=== PATIENT | male | born 1965 | race African-American/Black ===

== ENCOUNTER 2016-10-11 12:36 | Inpatient (IN) | payer OTHER ==
[2016-10-11 13:20] VITALS: BMI 30.6
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
[2016-10-11] MEDS ORDERED: MENTHOL/PHENOL 1 EACH UD MM PRN (16:20)
[2016-10-11] MEDS ORDERED: hydrOXYzine PAMOATE 50 MG CAPSULE (FP) PO PRN (16:20)
[2016-10-11] MEDS ORDERED: LOPERAMIDE HCL 2 MG CAPSULE PO PRN (16:20)
[2016-10-11] MEDS ORDERED: MAGNESIUM CITRATE 300 ML BOTTLE PO PRN (16:20)
[2016-10-11] MEDS ORDERED: MAGNESIUM HYDROX 2400MG/30ML ORAL SUSPENSION 30 ML CUP PO PRN (16:20)
[2016-10-11] MEDS ORDERED: guaiFENesin/D-METHORPHAN HB 10 ML UNIT-DOSE CUPS PO PRN (16:20)
[2016-10-11] MEDS ORDERED: MAG HYDROX/AL HYDROX/SIMETH 30 ML UNIT-DOSE CUP PO PRN (16:20)
[2016-10-11] MEDS ORDERED: diphenhydrAMINE HCL 50 MG CAPSULE PO PRN (16:20)
[2016-10-11] MEDS ORDERED: NICOTINE POLACRILEX 4 MG GUM BUC PRN (16:20)
[2016-10-11] MEDS ORDERED: IBUPROFEN 400 MG TABLET (FP) PO PRN (16:20)
[2016-10-11] MEDS ORDERED: P-EPHED 60MG/TRIPROLIDI 2.5MG TABLET PO PRN (16:20)
[2016-10-11] MEDS: INSULIN (NOVOLOG) ASPART 100 UNITS/ML 10ML VIAL SQ SCH (19:10)
[2016-10-11] MEDS ORDERED: TUBERCULIN PPD 5 TU/0.1ML VIAL ID ONE (19:12)
[2016-10-11 21:33] LABS: URINE APPEARANCE CLEAR; URINE BILIRUBIN NEGATIVE (NEGATIVE); URINE BLOOD NEGATIVE (NEGATIVE); URINE COLOR YELLOW; URINE GLUCOSE (UA) 3+ (NEGATIVE); URINE KETONE NEGATIVE (NEGATIVE); URINE LEUK ESTERASE NEGATIVE (NEGATIVE); URINE NITRITE NEGATIVE (NEGATIVE); URINE PROTEIN NEGATIVE (NEGATIVE); URINE UROBILINOGEN NEGATIVE mg/dL (0.2-1.0)
[2016-10-11] MEDS: THIAMINE HCL 100 MG TABLET (FP) PO SCH (22:22)
[2016-10-12] MEDS: metFORMIN HCL 500 MG TABLET (FP) PO SCH (06:49)
[2016-10-12] MEDS: INSULIN (NOVOLOG) ASPART 100 UNITS/ML 10ML VIAL SQ SCH ×3 (06:50→16:42)
[2016-10-12] MEDS ORDERED: INSULIN (NOVOLOG) ASPART 100 UNITS/ML 10ML VIAL ONE ×3 (06:54→16:41)
[2016-10-12] MEDS: PRENATAL VITAMINS W/ FOLIC ACID TABLET (FP) PO SCH (10:01)
[2016-10-12] MEDS: NICOTINE 21 MG/24 HOURS TOPICAL PATCH TD SCH (10:01)
[2016-10-12] MEDS: LISINOPRIL 10 MG TABLET (FP) PO SCH (10:01)
[2016-10-12 10:58] LABS: ALBUMIN 3.9 g/dl (3.4-5.0); ALK PHOS 69 U/L (45-117); ANION GAP 11 (8-16); BILIRUBIN,TOTAL 0.8 mg/dL (0.2-1.0); CALCIUM 9.6 mg/dL (8.5-10.1); CO2 28 mmol/L (21-32); CREATININE 0.8 mg/dL (0.7-1.3); GLUCOSE,RANDOM 197 mg/dL (74-106); SGOT/AST 26 U/L (15-37); SGPT/ALT 44 U/L (12-78)
[2016-10-12 11:00] LABS: MCH 32.4 pg (25.7-33.7); MCHC 33.5 g/dl (32.0-35.9); MEAN CELL VOLUME 96.7 fl (80-96); MEAN PLT VOLUME 9.1 fl (7.5-11.1); PLATELET COUNT 221 K/MM3 (134-434); RDW 13.8 % (11.9-15.9); WHITE BLOOD COUNT 6.9 K/mm3 (4.0-10.0)
[2016-10-12] MEDS: THIAMINE HCL 100 MG TABLET (FP) PO SCH (21:35)
[2016-10-13] MEDS ORDERED: INSULIN (NOVOLOG) ASPART 100 UNITS/ML 10ML VIAL ONE ×3 (06:57→16:37)
[2016-10-13] MEDS: metFORMIN HCL 500 MG TABLET (FP) PO SCH (06:57)
[2016-10-13] MEDS: INSULIN (NOVOLOG) ASPART 100 UNITS/ML 10ML VIAL SQ SCH ×3 (06:58→16:36)
[2016-10-13] MEDS: PRENATAL VITAMINS W/ FOLIC ACID TABLET (FP) PO SCH (09:54)
[2016-10-13] MEDS: NICOTINE 21 MG/24 HOURS TOPICAL PATCH TD SCH (09:54)
[2016-10-13] MEDS: LISINOPRIL 10 MG TABLET (FP) PO SCH (09:54)
[2016-10-13] MEDS: THIAMINE HCL 100 MG TABLET (FP) PO SCH (21:57)
--- NOTE | 2016-10-13 22:27 | EKG ---
Test Reason : Blood Pressure : / mmHG Vent. Rate : 091 BPM Atrial Rate : 091 BPM P-R Int : 150 ms QRS Dur : 096 ms QT Int : 362 ms P-R-T Axes : 059 -30 008 degrees QTc Int : 445 ms NORMAL SINUS RHYTHM POSSIBLE LEFT ATRIAL ENLARGEMENT LEFT AXIS DEVIATION ABNORMAL ECG NO PREVIOUS ECGS AVAILABLE Confirmed by AISHA PAT MD ([id number]) on 10/13/2016 10:27:07 PM Referred By: Rafa Parmar Confirmed By:AISHA PAT MD
[2016-10-14] MEDS: metFORMIN HCL 500 MG TABLET (FP) PO SCH (06:33)
[2016-10-14] MEDS: INSULIN (NOVOLOG) ASPART 100 UNITS/ML 10ML VIAL SQ SCH ×3 (06:35→17:01)
[2016-10-14] MEDS: NICOTINE 21 MG/24 HOURS TOPICAL PATCH TD SCH (10:21)
[2016-10-14] MEDS: LISINOPRIL 10 MG TABLET (FP) PO SCH (10:21)
[2016-10-14] MEDS: PRENATAL VITAMINS W/ FOLIC ACID TABLET (FP) PO SCH (10:21)
[2016-10-14] MEDS ORDERED: INSULIN (NOVOLOG) ASPART 100 UNITS/ML 10ML VIAL ONE (11:54)
--- NOTE | 2016-10-14 12:21 | CONSULT ---
[facility] Psychiatric Consult - Data Date of interview: 10/14/16 Admission source: [facility] Substance Abuse History: - Smoking Cessation. Smoking history: Current every day smoker. Have you smoked in the past 12 months: Yes. Aproximately how many cigarettes per day: 10. Hx Chewing Tobacco Use: No. Initiated information on smoking cessation: Yes. 'Breaking Loose' booklet given: 10/11/16. - Substance & Tx. History. Hx Alcohol Use: Yes. Hx Substance Use: No. Substance Use Type : Alcohol. Hx Substance Use Treatment: Yes (detox [facility] d/c 10/11/16)
--- NOTE | 2016-10-14 13:20 | HP ---
Psychiatrist Admission - Data Date of interview: 10/14/16 Admission source: [facility] Identifying data: First admission to [address] for this 51 y/o AA male seeking rehabilitation treatment for alcohol and cocaine (crack) dependence.Patient is ,a father of two,homeless and supported on odd jobs. Medical History: Morbid obesity,diabetes mellitus,arthritis of both knees (self- report) and hypertension. Psychiatric History: Patient denies. Physical/Sexual Abuse/Trauma History: Patient denies. Additional Comment: Discussed with the patient in this interview.Mr Chowdhury cofirms this report as an accurate account of his addictions. Smoking Cessation. Smoking history: Current every day smoker. Have you smoked in the past 12 months: Yes. Aproximately how many cigarettes per day: 10. Hx Chewing Tobacco Use: No. Initiated information on smoking cessation: Yes. 'Breaking Loose' booklet given: 10/11/16. - Substance & Tx. History. Hx Alcohol Use: Yes. Hx Substance Use: No. Substance Use Type: Alcohol. Hx Substance Use Treatment: Yes (detox [facility] d/c 10/11/16) Vital Signs: Vital Signs - 24 hr 10/14/16 10/14/16 10/14/16 00:30 03:30 07:09 Temperature 98 F Pulse Rate 83 Respiratory 18 18 20 Rate Blood Pressure 154/74 10/14/16 10:45 Temperature Pulse Rate 87 Respiratory 18 Rate Blood Pressure 161/77 Allergies/Adverse Reactions: Allergies Allergy/AdvReac Type Severity Reaction Status Date / Time No Known Allergies Allergy Verified 10/11/16 16:09 - Substance Abuse/Tx History Hx Alcohol Use: Yes Hx Substance Use: Yes Substance Use Type: Alcohol, Cocaine Hx Substance Use Treatment: Yes (alcohol,crack and cigarettes) - Admission Criteria Previous failed treatment: Yes Poor recovery environment: Yes Comorbidities: Yes Lacks judgement: Yes Mental Status Exam - Mental Status Exam Alert and Oriented to: Time, Place, Person Cognitive Function: Good Patient Appearance: Well Groomed (obese) Mood: Hopeful, Euthymic Affect: Appropriate, Normal Range Patient Behavior: Appropriate, Cooperative Speech Pattern: Clear, Appropriate Voice Loudness: Normal Thought Process: Intact, Goal Oriented Thought Disorder: Not Present Hallucinations: Denies Suicidal Ideation: Denies Insight/Judgement: Poor Sleep: Well Appetite: Good Muscle strength/Tone: Normal Gait/Station: Normal Psychiatric Findings - Problem List ([place] 1, 2,3) (1) Alcohol dependence Current Visit: Yes Status: Acute (2) Nicotine dependence Current Visit: Yes Status: Acute Qualifiers: Nicotine product type: cigarettes Substance use status: uncomplicated Qualified Code(s): F17.210 - Nicotine dependence, cigarettes, uncomplicated (3) Cocaine dependence Current Visit: Yes Status: Acute (4) Diabetes mellitus Current Visit: Yes Status: Chronic Qualifiers: Diabetes mellitus type: type 2 Diabetes mellitus complication status: with unspecified complications Diabetes mellitus lobsterman insulin use: without lobsterman use Qualified Code(s): E11.8 - Type 2 diabetes mellitus with unspecified complications; Z79.4 - correction (current) use of insulin (5) Hypertension Current Visit: Yes Status: Chronic Qualifiers: Hypertension type: essential hypertension Qualified Code(s): I10 - Essential (primary) hypertension (6) Knee pain, chronic Current Visit: No Status: Chronic Qualifiers: Laterality: bilateral Qualified Code(s): M25.561 - Pain in right knee; G89.29 - Other chronic pain - Initial Treatment Plan Initial Treatment Plan: Psychoeducation is provided in this session.Support.Observation.
[2016-10-14] MEDS: THIAMINE HCL 100 MG TABLET (FP) PO SCH (21:31)
[2016-10-15] MEDS ORDERED: INSULIN (NOVOLOG) ASPART 100 UNITS/ML 10ML VIAL ONE ×2 (07:15→11:45)
[2016-10-15] MEDS: metFORMIN HCL 500 MG TABLET (FP) PO SCH (07:15)
[2016-10-15] MEDS: INSULIN (NOVOLOG) ASPART 100 UNITS/ML 10ML VIAL SQ SCH ×3 (07:15→16:56)
[2016-10-15] MEDS: LISINOPRIL 10 MG TABLET (FP) PO SCH (09:59)
[2016-10-15] MEDS: NICOTINE 21 MG/24 HOURS TOPICAL PATCH TD SCH (09:59)
[2016-10-15] MEDS: PRENATAL VITAMINS W/ FOLIC ACID TABLET (FP) PO SCH (09:59)
[2016-10-15] MEDS: NEOMYCIN/POLYMYXN/HC OTIC SOLUTION 10 ML BOTTLE AS SCH ×2 (17:08→23:30)
[2016-10-15] MEDS: THIAMINE HCL 100 MG TABLET (FP) PO SCH (22:03)
[2016-10-16] MEDS: NEOMYCIN/POLYMYXN/HC OTIC SOLUTION 10 ML BOTTLE AS SCH ×4 (06:47→23:37)
[2016-10-16] MEDS: metFORMIN HCL 500 MG TABLET (FP) PO SCH (07:10)
[2016-10-16] MEDS ORDERED: INSULIN (NOVOLOG) ASPART 100 UNITS/ML 10ML VIAL ONE ×2 (07:10→11:51)
[2016-10-16] MEDS: INSULIN (NOVOLOG) ASPART 100 UNITS/ML 10ML VIAL SQ SCH ×3 (07:10→16:59)
[2016-10-16] MEDS: PRENATAL VITAMINS W/ FOLIC ACID TABLET (FP) PO SCH (10:12)
[2016-10-16] MEDS: NICOTINE 21 MG/24 HOURS TOPICAL PATCH TD SCH (10:12)
[2016-10-16] MEDS: LISINOPRIL 10 MG TABLET (FP) PO SCH (10:12)
[2016-10-16] MEDS: PANTOPRAZOLE 40 MG TABLET (FP) PO SCH (15:38)
[2016-10-16] MEDS: THIAMINE HCL 100 MG TABLET (FP) PO SCH (22:09)
[2016-10-16] MEDS: NAPROXEN 500 MG TABLET (FP) PO SCH (22:09)
[2016-10-17] MEDS: metFORMIN HCL 500 MG TABLET (FP) PO SCH (06:04)
[2016-10-17] MEDS: NEOMYCIN/POLYMYXN/HC OTIC SOLUTION 10 ML BOTTLE AS SCH ×4 (06:05→23:23)
[2016-10-17] MEDS: INSULIN (NOVOLOG) ASPART 100 UNITS/ML 10ML VIAL SQ SCH ×3 (06:31→17:03)
[2016-10-17] MEDS: NAPROXEN 500 MG TABLET (FP) PO SCH ×2 (10:24→21:38)
[2016-10-17] MEDS: LISINOPRIL 10 MG TABLET (FP) PO SCH (10:24)
[2016-10-17] MEDS: NICOTINE 21 MG/24 HOURS TOPICAL PATCH TD SCH (10:25)
[2016-10-17] MEDS: PANTOPRAZOLE 40 MG TABLET (FP) PO SCH (10:25)
[2016-10-17] MEDS: PRENATAL VITAMINS W/ FOLIC ACID TABLET (FP) PO SCH (10:25)
[2016-10-17] MEDS ORDERED: INSULIN (NOVOLOG) ASPART 100 UNITS/ML 10ML VIAL ONE ×2 (11:50→17:04)
[2016-10-17] MEDS: ACETAMINOPHEN 325 MG TABLET (FP) PO PRN (17:06)
[2016-10-17] MEDS: THIAMINE HCL 100 MG TABLET (FP) PO SCH (21:38)
[2016-10-18] MEDS: NEOMYCIN/POLYMYXN/HC OTIC SOLUTION 10 ML BOTTLE AS SCH ×4 (06:29→23:51)
[2016-10-18] MEDS: metFORMIN HCL 500 MG TABLET (FP) PO SCH (07:06)
[2016-10-18] MEDS: INSULIN (NOVOLOG) ASPART 100 UNITS/ML 10ML VIAL SQ SCH ×3 (07:07→16:57)
[2016-10-18] MEDS ORDERED: INSULIN (NOVOLOG) ASPART 100 UNITS/ML 10ML VIAL ONE ×2 (07:07→11:39)
[2016-10-18] MEDS: NAPROXEN 500 MG TABLET (FP) PO SCH ×2 (10:07→21:29)
[2016-10-18] MEDS: PANTOPRAZOLE 40 MG TABLET (FP) PO SCH (10:07)
[2016-10-18] MEDS: PRENATAL VITAMINS W/ FOLIC ACID TABLET (FP) PO SCH (10:07)
[2016-10-18] MEDS: LISINOPRIL 10 MG TABLET (FP) PO SCH (10:07)
[2016-10-18] MEDS: NICOTINE 21 MG/24 HOURS TOPICAL PATCH TD SCH (10:08)
[2016-10-18] MEDS: GABAPENTIN 100 MG CAPSULE (FP) PO SCH ×2 (13:11→21:28)
[2016-10-18] MEDS: THIAMINE HCL 100 MG TABLET (FP) PO SCH (21:28)
[2016-10-19] MEDS: NEOMYCIN/POLYMYXN/HC OTIC SOLUTION 10 ML BOTTLE AS SCH ×4 (06:00→23:22)
[2016-10-19] MEDS: GABAPENTIN 100 MG CAPSULE (FP) PO SCH ×3 (06:30→21:48)
[2016-10-19] MEDS ORDERED: INSULIN (NOVOLOG) ASPART 100 UNITS/ML 10ML VIAL ONE (07:22)
[2016-10-19] MEDS: metFORMIN HCL 500 MG TABLET (FP) PO SCH (07:23)
[2016-10-19] MEDS: INSULIN (NOVOLOG) ASPART 100 UNITS/ML 10ML VIAL SQ SCH ×3 (07:24→16:38)
[2016-10-19] MEDS: PANTOPRAZOLE 40 MG TABLET (FP) PO SCH (10:26)
[2016-10-19] MEDS: LISINOPRIL 10 MG TABLET (FP) PO SCH (10:26)
[2016-10-19] MEDS: PRENATAL VITAMINS W/ FOLIC ACID TABLET (FP) PO SCH (10:26)
[2016-10-19] MEDS: NAPROXEN 500 MG TABLET (FP) PO SCH ×2 (10:26→21:48)
[2016-10-19] MEDS: NICOTINE 21 MG/24 HOURS TOPICAL PATCH TD SCH (10:44)
[2016-10-19] MEDS: THIAMINE HCL 100 MG TABLET (FP) PO SCH (21:48)
[2016-10-20] MEDS: GABAPENTIN 100 MG CAPSULE (FP) PO SCH ×3 (06:24→21:33)
[2016-10-20] MEDS: NEOMYCIN/POLYMYXN/HC OTIC SOLUTION 10 ML BOTTLE AS SCH ×3 (06:24→17:25)
[2016-10-20] MEDS ORDERED: INSULIN (NOVOLOG) ASPART 100 UNITS/ML 10ML VIAL ONE (07:28)
[2016-10-20] MEDS: metFORMIN HCL 500 MG TABLET (FP) PO SCH (07:28)
[2016-10-20] MEDS: INSULIN (NOVOLOG) ASPART 100 UNITS/ML 10ML VIAL SQ SCH ×3 (07:29→16:57)
[2016-10-20] MEDS: NAPROXEN 500 MG TABLET (FP) PO SCH ×2 (10:35→21:33)
[2016-10-20] MEDS: PANTOPRAZOLE 40 MG TABLET (FP) PO SCH (10:35)
[2016-10-20] MEDS: LISINOPRIL 10 MG TABLET (FP) PO SCH (10:36)
[2016-10-20] MEDS: NICOTINE 21 MG/24 HOURS TOPICAL PATCH TD SCH (10:36)
[2016-10-20] MEDS: PRENATAL VITAMINS W/ FOLIC ACID TABLET (FP) PO SCH (10:37)
[2016-10-20] MEDS: THIAMINE HCL 100 MG TABLET (FP) PO SCH (21:34)
[2016-10-21] MEDS: GABAPENTIN 100 MG CAPSULE (FP) PO SCH ×3 (06:26→21:55)
[2016-10-21] MEDS: NEOMYCIN/POLYMYXN/HC OTIC SOLUTION 10 ML BOTTLE AS SCH ×5 (06:26→23:25)
[2016-10-21] MEDS ORDERED: INSULIN (NOVOLOG) ASPART 100 UNITS/ML 10ML VIAL ONE ×2 (07:23→11:34)
[2016-10-21] MEDS: INSULIN (NOVOLOG) ASPART 100 UNITS/ML 10ML VIAL SQ SCH ×3 (07:24→16:49)
[2016-10-21] MEDS: metFORMIN HCL 500 MG TABLET (FP) PO SCH (07:24)
[2016-10-21] MEDS: PRENATAL VITAMINS W/ FOLIC ACID TABLET (FP) PO SCH (09:39)
[2016-10-21] MEDS: PANTOPRAZOLE 40 MG TABLET (FP) PO SCH (09:39)
[2016-10-21] MEDS: NAPROXEN 500 MG TABLET (FP) PO SCH ×2 (09:39→21:55)
[2016-10-21] MEDS: LISINOPRIL 10 MG TABLET (FP) PO SCH (09:40)
[2016-10-21] MEDS: NICOTINE 21 MG/24 HOURS TOPICAL PATCH TD SCH (09:40)
[2016-10-21] MEDS: THIAMINE HCL 100 MG TABLET (FP) PO SCH (21:56)
[2016-10-22] MEDS: metFORMIN HCL 500 MG TABLET (FP) PO SCH (06:10)
[2016-10-22] MEDS: GABAPENTIN 100 MG CAPSULE (FP) PO SCH ×3 (06:10→21:51)
[2016-10-22] MEDS: INSULIN (NOVOLOG) ASPART 100 UNITS/ML 10ML VIAL SQ SCH ×3 (06:12→16:56)
[2016-10-22] MEDS: NEOMYCIN/POLYMYXN/HC OTIC SOLUTION 10 ML BOTTLE AS SCH ×3 (06:12→18:52)
[2016-10-22] MEDS ORDERED: INSULIN (NOVOLOG) ASPART 100 UNITS/ML 10ML VIAL ONE ×2 (06:16→11:54)
[2016-10-22] MEDS: NICOTINE 21 MG/24 HOURS TOPICAL PATCH TD SCH (10:30)
[2016-10-22] MEDS: LISINOPRIL 10 MG TABLET (FP) PO SCH (10:31)
[2016-10-22] MEDS: PANTOPRAZOLE 40 MG TABLET (FP) PO SCH (10:31)
[2016-10-22] MEDS: NAPROXEN 500 MG TABLET (FP) PO SCH ×2 (10:31→21:51)
[2016-10-22] MEDS: PRENATAL VITAMINS W/ FOLIC ACID TABLET (FP) PO SCH (10:31)
[2016-10-22] MEDS ORDERED: CYCLOBENZAPRINE HCL 10 MG TABLET (FP) PO SCH (14:00)
[2016-10-22] MEDS: CYCLOBENZAPRINE HCL 10 MG TABLET (FP) PO SCH ×2 (14:35→21:51)
[2016-10-22] MEDS: THIAMINE HCL 100 MG TABLET (FP) PO SCH (21:51)
[2016-10-23] MEDS: CYCLOBENZAPRINE HCL 10 MG TABLET (FP) PO SCH ×3 (06:33→21:12)
[2016-10-23] MEDS: NEOMYCIN/POLYMYXN/HC OTIC SOLUTION 10 ML BOTTLE AS SCH ×5 (06:33→23:55)
[2016-10-23] MEDS: GABAPENTIN 100 MG CAPSULE (FP) PO SCH ×3 (06:33→21:12)
[2016-10-23] MEDS: metFORMIN HCL 500 MG TABLET (FP) PO SCH (07:13)
[2016-10-23] MEDS ORDERED: INSULIN (NOVOLOG) ASPART 100 UNITS/ML 10ML VIAL ONE ×3 (07:14→16:52)
[2016-10-23] MEDS: INSULIN (NOVOLOG) ASPART 100 UNITS/ML 10ML VIAL SQ SCH ×3 (07:14→16:51)
[2016-10-23] MEDS: PRENATAL VITAMINS W/ FOLIC ACID TABLET (FP) PO SCH (10:32)
[2016-10-23] MEDS: NICOTINE 21 MG/24 HOURS TOPICAL PATCH TD SCH (10:32)
[2016-10-23] MEDS: NAPROXEN 500 MG TABLET (FP) PO SCH ×2 (10:33→21:12)
[2016-10-23] MEDS: LISINOPRIL 10 MG TABLET (FP) PO SCH (10:33)
[2016-10-23] MEDS: PANTOPRAZOLE 40 MG TABLET (FP) PO SCH (10:34)
[2016-10-23] MEDS: THIAMINE HCL 100 MG TABLET (FP) PO SCH (21:13)
[2016-10-24] MEDS: GABAPENTIN 100 MG CAPSULE (FP) PO SCH ×3 (06:09→22:02)
[2016-10-24] MEDS: CYCLOBENZAPRINE HCL 10 MG TABLET (FP) PO SCH ×3 (06:09→22:02)
[2016-10-24] MEDS: NEOMYCIN/POLYMYXN/HC OTIC SOLUTION 10 ML BOTTLE AS SCH ×3 (06:10→17:39)
[2016-10-24] MEDS: metFORMIN HCL 500 MG TABLET (FP) PO SCH (07:17)
[2016-10-24] MEDS: INSULIN (NOVOLOG) ASPART 100 UNITS/ML 10ML VIAL SQ SCH ×3 (07:17→17:39)
[2016-10-24] MEDS ORDERED: INSULIN (NOVOLOG) ASPART 100 UNITS/ML 10ML VIAL ONE ×3 (07:17→17:42)
[2016-10-24] MEDS: NAPROXEN 500 MG TABLET (FP) PO SCH ×2 (10:06→22:03)
[2016-10-24] MEDS: LISINOPRIL 10 MG TABLET (FP) PO SCH (10:06)
[2016-10-24] MEDS: PRENATAL VITAMINS W/ FOLIC ACID TABLET (FP) PO SCH (10:06)
[2016-10-24] MEDS: PANTOPRAZOLE 40 MG TABLET (FP) PO SCH (10:06)
[2016-10-24] MEDS: NICOTINE 21 MG/24 HOURS TOPICAL PATCH TD SCH (10:07)
--- NOTE | 2016-10-24 10:27 | PN ---
Psychiatric Progress Note Vital Signs: Vital Signs Period Temp Pulse Resp BP Sys/Guevara Pulse Ox Last 24 Hr 98.3 F 78 18-20 132/70 Date of Session: 10/24/16 Chief Complaint:: "I want to take medication to help me with craving for alcohol " HPI: Patient addressing Alcohol and Cocaine Dependence comorbid with Nicotine Dependence ROS: DM, HTN and chronic knee pain Current Medications: Active Medications Generic Name Dose Route Start Last Admin Trade Name Freq PRN Reason Stop Dose Admin Acetaminophen 650 mg 10/11/16 16:20 10/17/16 17:06 Tylenol - PO 650 mg Q4H PRN Administration PAIN Al Hydroxide/Mg Hydroxide 30 ml 10/11/16 16:20 10/23/16 06:35 Mylanta Oral Suspension - PO 30 ml Q6H PRN Administration DYSPEPSIA Cyclobenzaprine HCl 10 mg 10/22/16 14:00 10/24/16 06:09 Flexeril - PO 10 mg TID ELLIS Administration Eucalyptus/Menthol/Phenol/Sorbitol 1 each 10/11/16 16:20 Cepastat Lozenge - MM Q4H PRN SORE THROAT Gabapentin 200 mg 10/22/16 14:00 10/24/16 06:09 Neurontin - PO 200 mg TID ELLIS Administration Guaifenesin 10 ml 10/11/16 16:20 Robitussin Dm - PO Q6H PRN COUGH Hydroxyzine Pamoate 50 mg 10/11/16 16:20 Vistaril - PO Q4H PRN AGITATION Insulin Aspart 0 units 10/11/16 16:30 10/24/16 07:17 Novolog Vial SQ 6 units TIDAC ELLIS Administration Protocol Lisinopril 10 mg 10/12/16 10:00 10/24/16 10:06 Prinivil PO 10 mg DAILY ELLIS Administration Loperamide HCl 4 mg 10/11/16 16:20 Imodium - PO Q6H PRN DIARRHEA Magnesium Citrate 300 ml 10/11/16 16:20 Citroma - PO Q48H PRN CONSTIPATION Magnesium Hydroxide 30 ml 10/11/16 16:20 Milk Of Magnesia - PO DAILY PRN CONSTIPATION Metformin HCl 500 mg 10/12/16 07:00 10/24/16 07:17 Glucophage - PO 500 mg DAILY@0700 ELLIS Administration Naltrexone HCl 50 mg 10/24/16 10:30 Revia - PO DAILY ELLIS Naproxen 500 mg 10/16/16 22:00 10/24/16 10:06 Naprosyn - PO 500 mg BID ELLIS Administration Neomycin/Polymyxin/Hydrocortisone 4 drop 10/15/16 18:00 10/24/16 06:10 Cortisporin Otic Solution - 4 drop Q6HPO ELLIS Administration Nicotine 21 mg 10/12/16 10:00 10/24/16 10:07 Nicoderm Patch - TD Not Given DAILY ELLIS Nicotine Polacrilex 4 mg 10/11/16 16:20 Nicorette Gum - BUC Q2H PRN NICOTINE REPLACEMENT RX Pantoprazole Sodium 40 mg 10/16/16 15:30 10/24/16 10:06 Protonix - PO 40 mg DAILY ELLIS Administration Multivit/Folic Acid/Iron 1 tab 10/12/16 10:00 10/24/16 10:06 Vitamins (Sjr) - PO 1 tab DAILY ELLIS Administration Pseudoephedrine/Triprolidine 1 combo 10/11/16 16:20 Actifed - PO TID PRN NASAL CONGESTION Thiamine HCl 100 mg 10/11/16 22:00 10/23/16 21:13 Vitamin B1 - PO 100 mg HS ELLIS Administration Medication(s) Change(s): Start Naltrexone 50 mg po daily Current Side Effect: No Lab tests ordered: Yes (LFT's: WNL) Lab tests reviewed: Yes Provider note:: Patient requests to be on medication management. Campral and Naltrexone for that purpose were both discussed with patient. He does not want to take Campral due to concern about number of pills and the frequency of administation of that medication which he finds very cumbersome. He opted to take Naltrexone instead. His lab results show LFT are WNL. Adverse-effects were discussed as well the importance to avoid taking any opoid containing product while taking Naltrexone. A pharmacy monograph about Naltrexone was provided to patient Total face to face time:: 25 Mental Status Exam - Mental Status Exam Alert and Oriented to: Time, Place, Person Cognitive Function: Fair Patient Appearance: Well Groomed Mood: Hopeful, Euthymic Affect: Appropriate Patient Behavior: Cooperative Speech Pattern: Clear Voice Loudness: Normal Thought Process: Intact, Goal Oriented Thought Disorder: Not Present Hallucinations: Denies Suicidal Ideation: Denies Homicidal Ideation: Denies Insight/Judgement: Fair Sleep: Fair Appetite: Good Muscle strength/Tone: Normal Gait/Station: Normal Psychiatric Treatment Plan - Problem List (1) Alcohol dependence Current Visit: Yes (2) Cocaine dependence Current Visit: Yes (3) Nicotine dependence Current Visit: Yes Qualifiers: Nicotine product type: cigarettes Substance use status: uncomplicated Qualified Code(s): F17.210 - Nicotine dependence, cigarettes, uncomplicated (4) Diabetes mellitus Current Visit: Yes Qualifiers: Diabetes mellitus type: type 2 Diabetes mellitus complication status: with unspecified complications Diabetes mellitus termination clerk insulin use: without penitentiary use Qualified Code(s): E11.8 - Type 2 diabetes mellitus with unspecified complications; Z79.4 - [facility] (current) use of insulin (5) Hypertension Current Visit: Yes Qualifiers: Hypertension type: essential hypertension Qualified Code(s): I10 - Essential (primary) hypertension (6) Knee pain, chronic Current Visit: No Qualifiers: Laterality: bilateral Qualified Code(s): M25.561 - Pain in right knee; G89.29 - Other chronic pain Initial treatment plan: 1) Start Naltrexone 50 mg po daily. 2) Monitor progress
[2016-10-24] MEDS: NALTREXONE HCL 50 MG TABLET PO SCH (11:53)
[2016-10-24] MEDS: THIAMINE HCL 100 MG TABLET (FP) PO SCH (22:04)
[2016-10-25] MEDS: NEOMYCIN/POLYMYXN/HC OTIC SOLUTION 10 ML BOTTLE AS SCH ×5 (00:35→23:49)
[2016-10-25] MEDS ORDERED: INSULIN (NOVOLOG) ASPART 100 UNITS/ML 10ML VIAL ONE ×3 (05:59→20:37)
[2016-10-25] MEDS: GABAPENTIN 100 MG CAPSULE (FP) PO SCH ×3 (06:14→21:45)
[2016-10-25] MEDS: CYCLOBENZAPRINE HCL 10 MG TABLET (FP) PO SCH ×3 (06:14→21:45)
[2016-10-25] MEDS: metFORMIN HCL 500 MG TABLET (FP) PO SCH (06:15)
[2016-10-25] MEDS: INSULIN (NOVOLOG) ASPART 100 UNITS/ML 10ML VIAL SQ SCH ×3 (06:17→16:50)
[2016-10-25] MEDS: PANTOPRAZOLE 40 MG TABLET (FP) PO SCH (09:39)
[2016-10-25] MEDS: NALTREXONE HCL 50 MG TABLET PO SCH (09:39)
[2016-10-25] MEDS: LISINOPRIL 10 MG TABLET (FP) PO SCH (09:39)
[2016-10-25] MEDS: NAPROXEN 500 MG TABLET (FP) PO SCH ×2 (09:39→21:45)
[2016-10-25] MEDS: PRENATAL VITAMINS W/ FOLIC ACID TABLET (FP) PO SCH (09:40)
[2016-10-25] MEDS: NICOTINE 21 MG/24 HOURS TOPICAL PATCH TD SCH (09:40)
[2016-10-25] MEDS: THIAMINE HCL 100 MG TABLET (FP) PO SCH (21:45)
[2016-10-26] MEDS ORDERED: INSULIN (NOVOLOG) ASPART 100 UNITS/ML 10ML VIAL ONE ×3 (06:09→16:55)
[2016-10-26] MEDS: GABAPENTIN 100 MG CAPSULE (FP) PO SCH ×3 (06:24→21:08)
[2016-10-26] MEDS: CYCLOBENZAPRINE HCL 10 MG TABLET (FP) PO SCH ×3 (06:24→21:08)
[2016-10-26] MEDS: metFORMIN HCL 500 MG TABLET (FP) PO SCH (06:24)
[2016-10-26] MEDS: INSULIN (NOVOLOG) ASPART 100 UNITS/ML 10ML VIAL SQ SCH ×3 (06:25→16:57)
[2016-10-26] MEDS: NEOMYCIN/POLYMYXN/HC OTIC SOLUTION 10 ML BOTTLE AS SCH ×4 (06:50→23:13)
[2016-10-26] MEDS: NICOTINE 21 MG/24 HOURS TOPICAL PATCH TD SCH (09:46)
[2016-10-26] MEDS: NALTREXONE HCL 50 MG TABLET PO SCH (09:46)
[2016-10-26] MEDS: PRENATAL VITAMINS W/ FOLIC ACID TABLET (FP) PO SCH (09:46)
[2016-10-26] MEDS: PANTOPRAZOLE 40 MG TABLET (FP) PO SCH (09:46)
[2016-10-26] MEDS: NAPROXEN 500 MG TABLET (FP) PO SCH ×2 (09:46→21:08)
[2016-10-26] MEDS: LISINOPRIL 10 MG TABLET (FP) PO SCH (09:46)
[2016-10-26] MEDS: THIAMINE HCL 100 MG TABLET (FP) PO SCH (21:08)
[2016-10-27] MEDS: GABAPENTIN 100 MG CAPSULE (FP) PO SCH ×3 (06:27→21:31)
[2016-10-27] MEDS: CYCLOBENZAPRINE HCL 10 MG TABLET (FP) PO SCH ×3 (06:27→21:31)
[2016-10-27] MEDS: metFORMIN HCL 500 MG TABLET (FP) PO SCH (06:28)
[2016-10-27] MEDS: INSULIN (NOVOLOG) ASPART 100 UNITS/ML 10ML VIAL SQ SCH ×3 (06:30→16:34)
[2016-10-27] MEDS ORDERED: INSULIN (NOVOLOG) ASPART 100 UNITS/ML 10ML VIAL ONE ×3 (06:30→16:35)
[2016-10-27] MEDS: NEOMYCIN/POLYMYXN/HC OTIC SOLUTION 10 ML BOTTLE AS SCH ×4 (06:33→23:23)
[2016-10-27] MEDS: NICOTINE 21 MG/24 HOURS TOPICAL PATCH TD SCH (09:44)
[2016-10-27] MEDS: PANTOPRAZOLE 40 MG TABLET (FP) PO SCH (09:44)
[2016-10-27] MEDS: NALTREXONE HCL 50 MG TABLET PO SCH (09:44)
[2016-10-27] MEDS: PRENATAL VITAMINS W/ FOLIC ACID TABLET (FP) PO SCH (09:44)
[2016-10-27] MEDS: LISINOPRIL 10 MG TABLET (FP) PO SCH (09:44)
[2016-10-27] MEDS: NAPROXEN 500 MG TABLET (FP) PO SCH ×2 (09:44→21:31)
[2016-10-27] MEDS: THIAMINE HCL 100 MG TABLET (FP) PO SCH (21:31)
[2016-10-28] MEDS: GABAPENTIN 100 MG CAPSULE (FP) PO SCH ×3 (06:25→21:19)
[2016-10-28] MEDS: CYCLOBENZAPRINE HCL 10 MG TABLET (FP) PO SCH ×3 (06:26→21:19)
[2016-10-28] MEDS: NEOMYCIN/POLYMYXN/HC OTIC SOLUTION 10 ML BOTTLE AS SCH ×3 (06:26→17:50)
[2016-10-28] MEDS ORDERED: INSULIN (NOVOLOG) ASPART 100 UNITS/ML 10ML VIAL ONE ×3 (07:28→17:19)
[2016-10-28] MEDS: INSULIN (NOVOLOG) ASPART 100 UNITS/ML 10ML VIAL SQ SCH ×3 (07:28→16:52)
[2016-10-28] MEDS: metFORMIN HCL 500 MG TABLET (FP) PO SCH (07:28)
[2016-10-28] MEDS: PRENATAL VITAMINS W/ FOLIC ACID TABLET (FP) PO SCH (09:40)
[2016-10-28] MEDS: NAPROXEN 500 MG TABLET (FP) PO SCH ×2 (09:40→21:19)
[2016-10-28] MEDS: NALTREXONE HCL 50 MG TABLET PO SCH (09:40)
[2016-10-28] MEDS: NICOTINE 21 MG/24 HOURS TOPICAL PATCH TD SCH (09:41)
[2016-10-28] MEDS: PANTOPRAZOLE 40 MG TABLET (FP) PO SCH (09:41)
[2016-10-28] MEDS: LISINOPRIL 10 MG TABLET (FP) PO SCH (09:41)
[2016-10-28] MEDS: THIAMINE HCL 100 MG TABLET (FP) PO SCH (21:20)
[2016-10-29] MEDS: NEOMYCIN/POLYMYXN/HC OTIC SOLUTION 10 ML BOTTLE AS SCH ×4 (06:27→17:06)
[2016-10-29] MEDS: GABAPENTIN 100 MG CAPSULE (FP) PO SCH ×3 (06:28→21:07)
[2016-10-29] MEDS: CYCLOBENZAPRINE HCL 10 MG TABLET (FP) PO SCH ×3 (06:28→21:07)
[2016-10-29] MEDS ORDERED: INSULIN (NOVOLOG) ASPART 100 UNITS/ML 10ML VIAL ONE ×3 (07:03→17:12)
[2016-10-29] MEDS: metFORMIN HCL 500 MG TABLET (FP) PO SCH (07:03)
[2016-10-29] MEDS: INSULIN (NOVOLOG) ASPART 100 UNITS/ML 10ML VIAL SQ SCH ×3 (07:04→16:56)
--- NOTE | 2016-10-29 07:39 | PN ---
Psychiatric Progress Note Vital Signs: Vital Signs Period Temp Pulse Resp BP Sys/Guevara Pulse Ox Last 24 Hr 98.2 F 83-90 20-20 150-162/83-89 Date of Session: 10/29/16 Chief Complaint:: DischargeNote HPI: Patient addressing Alcohol and Cocaine Dependence comorbid with Nicotine Dependence ROS: DM, HTN, chronic knee pain were medically managed Current Medications: Active Medications Generic Name Dose Route Start Last Admin Trade Name Freq PRN Reason Stop Dose Admin Acetaminophen 650 mg 10/11/16 16:20 10/17/16 17:06 Tylenol - PO 650 mg Q4H PRN Administration PAIN Al Hydroxide/Mg Hydroxide 30 ml 10/11/16 16:20 10/23/16 06:35 Mylanta Oral Suspension - PO 30 ml Q6H PRN Administration DYSPEPSIA Cyclobenzaprine HCl 10 mg 10/22/16 14:00 10/29/16 06:28 Flexeril - PO 10 mg TID ELLIS Administration Eucalyptus/Menthol/Phenol/Sorbitol 1 each 10/11/16 16:20 Cepastat Lozenge - MM Q4H PRN SORE THROAT Gabapentin 200 mg 10/22/16 14:00 10/29/16 06:28 Neurontin - PO 200 mg TID ELLIS Administration Guaifenesin 10 ml 10/11/16 16:20 Robitussin Dm - PO Q6H PRN COUGH Hydroxyzine Pamoate 50 mg 10/11/16 16:20 Vistaril - PO Q4H PRN AGITATION Insulin Aspart 0 units 10/11/16 16:30 10/29/16 07:04 Novolog Vial SQ 6 units TIDAC ELLIS Administration Protocol Lisinopril 10 mg 10/12/16 10:00 10/28/16 09:41 Prinivil PO 10 mg DAILY ELLIS Administration Loperamide HCl 4 mg 10/11/16 16:20 Imodium - PO Q6H PRN DIARRHEA Magnesium Citrate 300 ml 10/11/16 16:20 Citroma - PO Q48H PRN CONSTIPATION Magnesium Hydroxide 30 ml 10/11/16 16:20 Milk Of Magnesia - PO DAILY PRN CONSTIPATION Metformin HCl 500 mg 10/12/16 07:00 10/29/16 07:03 Glucophage - PO 500 mg DAILY@0700 ELLIS Administration Naltrexone HCl 50 mg 10/24/16 10:45 10/28/16 09:40 Revia - PO 50 mg DAILY ELLIS Administration Naproxen 500 mg 10/16/16 22:00 10/28/16 21:19 Naprosyn - PO 500 mg BID ELLIS Administration Neomycin/Polymyxin/Hydrocortisone 4 drop 10/15/16 18:00 10/29/16 06:27 Cortisporin Otic Solution - 4 drop Q6HPO ELLIS Administration Nicotine 21 mg 10/12/16 10:00 10/28/16 09:41 Nicoderm Patch - TD Not Given DAILY ELLIS Nicotine Polacrilex 4 mg 10/11/16 16:20 Nicorette Gum - BUC Q2H PRN NICOTINE REPLACEMENT RX Pantoprazole Sodium 40 mg 10/16/16 15:30 10/28/16 09:41 Protonix - PO 40 mg DAILY ELLIS Administration Multivit/Folic Acid/Iron 1 tab 10/12/16 10:00 10/28/16 09:40 Vitamins (Sjr) - PO 1 tab DAILY ELLIS Administration Pseudoephedrine/Triprolidine 1 combo 10/11/16 16:20 Actifed - PO TID PRN NASAL CONGESTION Thiamine HCl 100 mg 10/11/16 22:00 10/28/16 21:20 Vitamin B1 - PO 100 mg HS ELLIS Administration Current Side Effect: No Lab tests ordered: Yes Lab tests reviewed: Yes Provider note:: Patient will complete this program on 10/30/16. He has met his treatment goals and will continue to address his issues in terminal operator treatment at [facility]. Told health technical writer that from his participation in this program, he has learned . He responded well to Naltrexone 50 mg po daily. Script for 30 days supply of medication will be electronically transmitted to [facility] at [address] [place] [address]. He is stable for discharge on 10/30/16 Total face to face time:: 35 Mental Status Exam - Mental Status Exam Alert and Oriented to: Time, Place, Person Cognitive Function: Fair Patient Appearance: Well Groomed Mood: Hopeful, Euthymic Affect: Appropriate Patient Behavior: Cooperative Speech Pattern: Clear Voice Loudness: Normal Thought Process: Intact, Goal Oriented Thought Disorder: Not Present Hallucinations: Denies Suicidal Ideation: Denies Homicidal Ideation: Denies Insight/Judgement: Fair Sleep: Well Appetite: Good Muscle strength/Tone: Normal Gait/Station: Normal Psychiatric Treatment Plan - Problem List (1) Alcohol dependence Current Visit: Yes (2) Cocaine dependence Current Visit: Yes (3) Nicotine dependence Current Visit: Yes Qualifiers: Nicotine product type: cigarettes Substance use status: uncomplicated Qualified Code(s): F17.210 - Nicotine dependence, cigarettes, uncomplicated (4) Diabetes mellitus Current Visit: Yes Qualifiers: Diabetes mellitus type: type 2 Diabetes mellitus complication status: with unspecified complications Diabetes mellitus usp insulin use: without usp use Qualified Code(s): E11.8 - Type 2 diabetes mellitus with unspecified complications; Z79.4 - terminal press operator (current) use of insulin (5) Hypertension Current Visit: Yes Qualifiers: Hypertension type: essential hypertension Qualified Code(s): I10 - Essential (primary) hypertension (6) Knee pain, chronic Current Visit: No Qualifiers: Laterality: bilateral Qualified Code(s): M25.561 - Pain in right knee; G89.29 - Other chronic pain Initial treatment plan: Patient will be discharged tomorrow and referred to [facility] for josue term treatment
[2016-10-29] MEDS: PANTOPRAZOLE 40 MG TABLET (FP) PO SCH (10:09)
[2016-10-29] MEDS: NAPROXEN 500 MG TABLET (FP) PO SCH ×2 (10:10→21:07)
[2016-10-29] MEDS: LISINOPRIL 10 MG TABLET (FP) PO SCH (10:10)
[2016-10-29] MEDS: NALTREXONE HCL 50 MG TABLET PO SCH (10:10)
[2016-10-29] MEDS: PRENATAL VITAMINS W/ FOLIC ACID TABLET (FP) PO SCH (10:10)
[2016-10-29] MEDS: NICOTINE 21 MG/24 HOURS TOPICAL PATCH TD SCH (10:11)
[2016-10-29] MEDS: THIAMINE HCL 100 MG TABLET (FP) PO SCH (21:08)
[2016-10-30] MEDS: NEOMYCIN/POLYMYXN/HC OTIC SOLUTION 10 ML BOTTLE AS SCH ×2 (05:59)
[2016-10-30] MEDS: GABAPENTIN 100 MG CAPSULE (FP) PO SCH (05:59)
[2016-10-30] MEDS: CYCLOBENZAPRINE HCL 10 MG TABLET (FP) PO SCH (05:59)
[2016-10-30 06:59] VITALS: BP 143/80; PULSE 89; TEMP 98.5
[2016-10-30] MEDS: metFORMIN HCL 500 MG TABLET (FP) PO SCH (07:25)
[2016-10-30] MEDS ORDERED: INSULIN (NOVOLOG) ASPART 100 UNITS/ML 10ML VIAL ONE (07:25)
[2016-10-30] MEDS: INSULIN (NOVOLOG) ASPART 100 UNITS/ML 10ML VIAL SQ SCH (07:26)
[2016-10-30] MEDS: ACETAMINOPHEN 325 MG TABLET (FP) PO PRN (07:34)
== END 2016-10-30 08:50 | disposition home or self-care (01) | DRG 772 ==
LOC: YASAS 12:36 → Y3W 18:23
PROVIDERS: ADMIT Psychiatry & Neurology Psychiatry; ATTEND Internal Medicine
PROC: HZ42ZZZ Group Counseling for Substance Abuse Treatment, Cognitive-Behavioral (ICD-10-PCS; principal; 2016-10-11)
DX: F10.230 Alcohol dependence with withdrawal, uncomplicated (principal); F14.20 Cocaine dependence, uncomplicated; F17.210 Nicotine dependence, cigarettes, uncomplicated; I10 Essential (primary) hypertension; E11.9 Type 2 diabetes mellitus without complications; Z79.84 Long term (current) use of oral hypoglycemic drugs; M25.561 Pain in right knee; G89.29 Other chronic pain; L85.3 Xerosis cutis; Z59.0 Homelessness
CPT/HCPCS: 36415; 80053; 81003; 85027; 86593; 93005; 93010